=== PATIENT | male | born 1985 | race Caucasian/White ===

== ENCOUNTER 2020-08-28 14:28 | Emergency (ER) | payer MEDICAID ==
[~2020-08-28] VITALS: Ht 177.8 cm; Wt 97.7 kg
[2020-08-28 14:43] VITALS: BP 131/95
[2020-08-28] MEDS ORDERED: AMOX-422 PO (15:19)
== END 2020-08-28 15:33 | disposition home or self-care (01) ==
LOC: ER 14:30
DX: K02.9 Dental caries, unspecified (principal); Z79.899 Other long term (current) drug therapy
CPT/HCPCS: 99283; 99285

== ENCOUNTER 2021-09-28 17:54 | Emergency (ER) | payer MEDICAID ==
[~2021-09-28] VITALS: Ht 177.8 cm; Wt 95.5 kg
[2021-09-28 18:01] VITALS: BP 138/103
[2021-09-28] MEDS ORDERED: AMOX-422 PO (19:02)
[2021-09-28] MEDS ORDERED: amox tr/potassium clavulanate 875/125mg TAB PO STA (19:05)
== END 2021-09-28 19:23 | disposition home or self-care (01) ==
LOC: ER 17:55
DX: K04.7 Periapical abscess without sinus (principal); L02.212 Cutaneous abscess of back [any part, except buttock and flank]; K02.9 Dental caries, unspecified; Z79.2 Long term (current) use of antibiotics
CPT/HCPCS: 99283